=== PATIENT | male | born 1970 | race American Indian/Alaskan Native ===

== ENCOUNTER 2020-10-25 22:08 | Emergency (ER) | payer BC, OTHER ==
--- NOTE | 2020-10-26 06:36 | Emergency Department Report ---
ED Abdominal Pain HPI - General Chief Complaint: Nausea/Vomiting/Diarrhea Stated Complaint: ABD PAIN/NAUSEA PUI?: Yes Time Seen by Provider: 10/26/20 06:28 Source: patient Mode of arrival: Ambulatory Limitations: No Limitations - History of Present Illness Initial Comments: Chief complaint: "I am stressed. I never felt like this before." HPI: This is a 50-year-old male history of hypertension who presents with abdominal bloating for the past day. He felt full to the point of nausea. He denies discrete pain or diarrhea. He was concerned about the deltoid area. He received 2 doses of Pfizer vaccine in June and July. He denies fever, cough, shortness of breath. He denies loss of taste or smell. He has intact appetite. He admits to being stressed out. The father of his daughter recently. He is the same age as this gentleman. He also buried his aunt 2 weeks ago. He recently changed jobs. He left [employer]. He now has [employer]. He does not have a PCP. Consequently he has ran out of his blood pressure medicines because he has not yet found a new PCP. Most recently he discontinued labetalol and now is taking amlodipine. However he has been without his medication for quite some time. Lisinopril caused angioedema. MD Complaint: abdominal pain -: Gradual, days(s) (1 day) Location: diffuse Radiation: none Migration to: no migration Severity: mild Severity scale (0 -10): 0 Quality: dull Consistency: now resolved Improves With: nothing Worsens With: nothing Associated Symptoms: nausea - Related Data Previous Rx's Medication Instructions Recorded Last Taken Type Diphenoxylate/Atropine [Lomotil] 1 tab PO Q4H PRN #10 tablet 07/15/13 Unknown Rx Hyoscyamine Subl [Levsin Sl] 0.125 mg SL Q4HR PRN #10 tablet 07/15/13 Unknown Rx Ondansetron [Zofran Odt] 4 mg PO Q4-6H PRN #14 tab.rapdis 07/15/13 Unknown Rx amLODIPine 10 mg PO DAILY 90 Days #90 tab 10/26/20 Unknown Rx Allergies Allergy/AdvReac Type Severity Reaction Status Date / Time No Known Allergies Allergy Unverified 07/14/13 20:12 ED Review of Systems ROS: Stated complaint: ABD PAIN/NAUSEA Other details as noted in HPI Comment: All other systems reviewed and negative Constitutional: denies: chills, fever, malaise Respiratory: denies: cough, shortness of breath Cardiovascular: denies: chest pain Gastrointestinal: abdominal pain, nausea Psychiatric: denies: homicidal thoughts, suicidal thoughts ED Past Medical Hx - Past Medical History Previous Medical History?: Yes Hx Hypertension: Yes (noncompliant with meds) - Surgical History Past Surgical History?: No - Family History Family history: hypertension - Social History Smoking Status: Never Smoker Substance Use Type: None - Medications Home Medications: Home Medications Medication Instructions Recorded Confirmed Last Taken Type Diphenoxylate/Atropine [Lomotil] 1 tab PO Q4H PRN #10 tablet 07/15/13 Unknown Rx Hyoscyamine Subl [Levsin Sl] 0.125 mg SL Q4HR PRN #10 tablet 07/15/13 Unknown Rx Ondansetron [Zofran Odt] 4 mg PO Q4-6H PRN #14 tab.rapdis 07/15/13 Unknown Rx amLODIPine 10 mg PO DAILY 90 Days #90 tab 10/26/20 Unknown Rx ED Physical Exam - General Limitations: No Limitations General appearance: alert, in no apparent distress, other (Pleasant, comfortable, well-appearing nontoxic-appearing) - Head Head exam: Present: atraumatic, normocephalic - Eye Eye exam: Present: normal appearance - ENT ENT exam: Present: mucous membranes moist - Neck Neck exam: Present: normal inspection, full ROM - Respiratory Respiratory exam: Present: normal lung sounds bilaterally. Absent: respiratory distress, wheezes, rales, rhonchi - Cardiovascular Cardiovascular Exam: Present: regular rate, normal rhythm, normal heart sounds. Absent: systolic murmur, diastolic murmur, rubs, gallop - GI/Abdominal GI/Abdominal exam: Present: soft, normal bowel sounds. Absent: distended, tenderness, guarding, rebound - Rectal Rectal exam: Present: deferred - Extremities Exam Extremities exam: Present: normal inspection - Neurological Exam Neurological exam: Present: alert, oriented X3 - Psychiatric Psychiatric exam: Present: normal affect, normal mood - Skin Skin exam: Present: warm, dry, intact, normal color. Absent: rash ED Course Vital Signs 10/26/20 01:40 Temperature 98.2 F Pulse Rate 104 H Respiratory 16 Rate Blood Pressure 177/100 [Left] O2 Sat by Pulse 100 Oximetry ED Medical Decision Making - Medical Decision Making 1. Irritable bowel syndrome aggravated by social stressors, recommended supportive care given reassurance. Patient was provided education on COVID-19. Reassured Mr. Jean Baptiste that he is protected from the delta variant of COVID-19 with Pfizer vaccine. 2. Hypertensive urgency due to medication noncompliance, patient given extensive education. I informed him of the long-term complications of untreated hypertension. I have prescribed amlodipine 90-day prescription. 3. Social stressors with 2 deaths in the family within 2 weeks. I recommended walking outside daily. I recommended taking time off work. I recommended vacation with his . Critical care attestation.: If time is entered above; I have spent that time in minutes in the direct care of this critically ill patient, excluding procedure time. ED Disposition Clinical Impression: Irritable bowel syndrome, Hypertensive urgency, Stress at home Disposition: DC-01 TO HOME OR SELFCARE Is pt being admited?: No Does the pt Need Aspirin: No Condition: Stable Instructions: Hypertension, Adult, [id number], Diet for Irritable Bowel Syndrome Prescriptions: amLODIPine 10 mg PO DAILY 90 Days #90 tab Referrals: ANTONI KELLY MD [Staff Physician] - 3-5 Days Forms: Work/School Release Form(ED)
[2020-10-26 06:53] VITALS: BP 157/113
== END 2020-10-26 06:45 | disposition home or self-care (01) ==
LOC: ED 22:08
DX: K58.9 Irritable bowel syndrome, unspecified (principal); I16.0 Hypertensive urgency; F43.9 Reaction to severe stress, unspecified
CPT/HCPCS: 99282

== ENCOUNTER 2021-01-21 04:56 | Emergency (ER) | payer BC ==
[2021-01-21] MEDS ORDERED: ONDANSETRON 4 MG ODT TAB PO ONE (07:26)
[2021-01-21 08:12] LABS: Basophils % (Auto) 0.5 % (0.0-1.8); Eosinophils % (Auto) 0.2 % (0.0-4.3); Lymphocytes # (Auto) 0.4 K/mm3 (1.2-5.4); Lymphocytes % (Auto) 7.1 % (13.4-35.0); Mean Corpuscular HGB Conc 31 % (32-34); Mean Corpuscular Volume 73 fl (84-94); Monocytes # (Auto) 0.4 K/mm3 (0.0-0.8); Monocytes % (Auto) 6.9 % (0.0-7.3); Platelet Count 241 K/mm3 (140-440); Red Blood Count 7.07 M/mm3 (3.65-5.03); Red Cell Distribution Width 16.8 % (13.2-15.2)
[2021-01-21 08:14] LABS: Hematocrit 51.8 % (35.5-45.6); Hemoglobin 16.2 gm/dl (11.8-15.2)
[2021-01-21 08:29] LABS: Bilirubin,Urine NEG (Negative); Blood,Urine NEG (Negative); Color,Urine Yellow (Yellow); Protein,Urine <15 mg/dL mg/dL (Negative); RBC,Urine < 1.0 /HPF (0.0-6.0); Urobilinogen,Urine < 2.0 mg/dL (<2.0)
[2021-01-21 08:32] LABS: Alanine Aminotransferase 24 units/L (7-56); Albumin 4.8 g/dL (3.9-5); BUN/Creatinine Ratio 8; Blood Urea Nitrogen 9 mg/dL (9-20); Calcium 10.1 mg/dL (8.4-10.2); Hemolysis Index 6
--- NOTE | 2021-01-21 08:41 | Emergency Department Report ---
ED N/V/D HPI - General Chief complaint: Nausea/Vomiting/Diarrhea Stated complaint: HIGH BP/NAUSEA Time Seen by Provider: 01/21/21 07:17 Source: patient Mode of arrival: Ambulatory Limitations: No Limitations - History of Present Illness Initial comments: This is a 50-year-old male nontoxic, well nourished in appearance, no acute signs of distress presents to the ED with c/o of nausea 1 day. Patient stated that last night he went out and had few drinks and ate a taco and this morning started to have some nausea. Patient denies any vomiting. Patient also stated is concerned about his blood pressure and stated that his normal blood pressure is high 170s over low 100s. Patient stated he is concerned that it may be high today. Patient denies any other symptoms or complaints. Patient denies any abdominal pain, chest pain, short of breath, fever, chills, headache, stiff neck, numbness or tingling. Patient denies any diarrhea or constipation. Denies any blood in stool. Patient denies any recent travels. Patient denies any drug allergies. Patient is compliant with his blood pressure medication. MD complaint: nausea -: days(s) Associated Abdominal Pain: No Radiation: none Pain Scale: 0 Worsens with: none Associated Symptoms: nausea/vomiting (nausea only). denies: myalgias, chest pain, cough, diaphoresis, fever/chills, headaches, loss of appetite, malaise, rash, dysuria, shortness of breath, syncope, weakness - Related Data Previous Rx's Medication Instructions Recorded Last Taken Type Diphenoxylate/Atropine [Lomotil] 1 tab PO Q4H PRN #10 tablet 07/15/13 Unknown Rx Hyoscyamine Subl [Levsin Sl] 0.125 mg SL Q4HR PRN #10 tablet 07/15/13 Unknown Rx Ondansetron [Zofran Odt] 4 mg PO Q4-6H PRN #14 tab.rapdis 07/15/13 Unknown Rx amLODIPine 10 mg PO DAILY 90 Days #90 tab 10/26/20 Unknown Rx Ondansetron [Zofran Odt] 4 mg PO Q8HR PRN #12 tab.rapdis 01/21/21 Unknown Rx Allergies Allergy/AdvReac Type Severity Reaction Status Date / Time No Known Allergies Allergy Unverified 07/14/13 20:12 ED Review of Systems ROS: Stated complaint: HIGH BP/NAUSEA Other details as noted in HPI Comment: All other systems reviewed and negative Constitutional: denies: chills, fever Eyes: denies: eye pain, eye discharge, vision change ENT: denies: ear pain, throat pain Respiratory: denies: cough, shortness of breath, wheezing Cardiovascular: denies: chest pain, palpitations Endocrine: no symptoms reported Gastrointestinal: nausea. denies: abdominal pain, vomiting, diarrhea, constipation, hematemesis, melena, hematochezia Genitourinary: denies: urgency, dysuria Musculoskeletal: denies: back pain, joint swelling, arthralgia Skin: denies: rash, lesions Neurological: denies: headache, weakness, paresthesias Psychiatric: denies: anxiety, depression Hematological/Lymphatic: denies: easy bleeding, easy bruising ED Past Medical Hx - Past Medical History Previous Medical History?: No Hx Hypertension: Yes (noncompliant with meds) - Surgical History Past Surgical History?: No - Social History Smoking Status: Never Smoker Substance Use Type: None - Medications Home Medications: Home Medications Medication Instructions Recorded Confirmed Last Taken Type Diphenoxylate/Atropine [Lomotil] 1 tab PO Q4H PRN #10 tablet 07/15/13 Unknown Rx Hyoscyamine Subl [Levsin Sl] 0.125 mg SL Q4HR PRN #10 tablet 07/15/13 Unknown Rx Ondansetron [Zofran Odt] 4 mg PO Q4-6H PRN #14 tab.rapdis 07/15/13 Unknown Rx amLODIPine 10 mg PO DAILY 90 Days #90 tab 10/26/20 Unknown Rx Ondansetron [Zofran Odt] 4 mg PO Q8HR PRN #12 tab.rapdis 01/21/21 Unknown Rx ED Physical Exam - General Limitations: No Limitations General appearance: alert, in no apparent distress - Head Head exam: Present: atraumatic, normocephalic - Eye Eye exam: Present: normal appearance - ENT ENT exam: Present: normal exam, normal orophraynx - Neck Neck exam: Present: normal inspection, full ROM. Absent: lymphadenopathy - Respiratory Respiratory exam: Present: normal lung sounds bilaterally. Absent: respiratory distress, wheezes, rales, rhonchi, stridor, chest wall tenderness, accessory muscle use, decreased breath sounds, prolonged expiratory - Cardiovascular Cardiovascular Exam: Present: regular rate, normal rhythm, normal heart sounds. Absent: bradycardia, tachycardia, irregular rhythm, systolic murmur, diastolic murmur, rubs, gallop - GI/Abdominal GI/Abdominal exam: Present: soft, normal bowel sounds. Absent: distended, tenderness, guarding, rebound, rigid, diminished bowel sounds - Extremities Exam Extremities exam: Present: normal inspection, full ROM - Back Exam Back exam: Present: normal inspection, full ROM. Absent: tenderness, CVA tenderness (R), CVA tenderness (L), muscle spasm, paraspinal tenderness, vertebral tenderness, rash noted - Neurological Exam Neurological exam: Present: alert, oriented X3, normal gait - Psychiatric Psychiatric exam: Present: normal affect, normal mood - Skin Skin exam: Present: warm, dry, intact, normal color. Absent: rash ED Course Vital Signs 01/21/21 05:19 Temperature 99.0 F Pulse Rate 97 H Respiratory 15 Rate Blood Pressure 164/106 [Left] O2 Sat by Pulse 98 Oximetry - Reevaluation(s) Reevaluation #1: 01/21/21 08:41 Patient is speaking in full sentences with no signs of distress noted. ED Medical Decision Making - Lab Data Result diagrams: 01/21/21 07:46 01/21/21 07:46 Lab Results 01/21/21 01/21/21 01/21/21 Range/Units 07:46 07:46 Unknown WBC 6.1 (4.5-11.0) K/mm3 RBC 7.07 H (3.65-5.03) M/mm3 Hgb 16.2 H (11.8-15.2) gm/dl Hct 51.8 H (35.5-45.6) % MCV 73 L (84-94) fl MCH 23 L (28-32) pg MCHC 31 L (32-34) % RDW 16.8 H (13.2-15.2) % Plt Count 241 (140-440) K/mm3 Lymph % (Auto) 7.1 L (13.4-35.0) % [place] % (Auto) 6.9 (0.0-7.3) % Eos % (Auto) 0.2 (0.0-4.3) % Baso % (Auto) 0.5 (0.0-1.8) % Lymph # (Auto) 0.4 L (1.2-5.4) K/mm3 [place] # (Auto) 0.4 (0.0-0.8) K/mm3 Eos # (Auto) 0.0 (0.0-0.4) K/mm3 Baso # (Auto) 0.0 (0.0-0.1) K/mm3 Seg Neutrophils % 85.3 H (40.0-70.0) % Seg Neutrophils # 5.2 (1.8-7.7) K/mm3 Sodium 137 (137-145) mmol/L Potassium 4.9 (3.6-5.0) mmol/L Chloride 99.3 (98-107) mmol/L Carbon Dioxide 26 (22-30) mmol/L Anion Gap 17 mmol/L BUN 9 (9-20) mg/dL Creatinine 1.1 (0.8-1.3) mg/dL Estimated GFR > 60 ml/min BUN/Creatinine Ratio 8 % Glucose 109 H (75-100) mg/dL Calcium 10.1 (8.4-10.2) mg/dL Total Bilirubin 0.40 (0.1-1.2) mg/dL AST 19 (5-40) units/L ALT 24 (7-56) units/L Alkaline Phosphatase 67 (35-129) units/L Total Protein 8.5 H (6.3-8.2) g/dL Albumin 4.8 (3.9-5) g/dL Albumin/Globulin Ratio 1.3 % Urine Color Yellow (Yellow) Urine Turbidity Clear (Clear) Urine pH 7.0 (5.0-7.0) Ur Specific [place] 1.010 (1.003-1.030) Urine Protein <15 mg/dl (Negative) mg/dL Urine Glucose (UA) Neg (Negative) mg/dL Urine Ketones Neg (Negative) mg/dL Urine Blood Neg (Negative) Urine Nitrite Neg (Negative) Urine Bilirubin Neg (Negative) Urine Urobilinogen < 2.0 (<2.0) mg/dL Ur Leukocyte Esterase Neg (Negative) Urine WBC (Auto) 1.0 (0.0-6.0) /HPF Urine RBC (Auto) < 1.0 (0.0-6.0) /HPF U Epithel Cells (Auto) < 1.0 (0-13.0) /HPF - Medical Decision Making This is a 50-year-old male that presents with nausea. Patient is stable and was examined by me. There is no abdominal tenderness. Negative signs of symptoms of appendicitis, cholecystitis or acute abdomen. Labs obtained. UA obtained. Vital signs are stable prior to discharge. Patient stated his blood pressure during todays visit is normal for patient. Patient received Zofran in the ED which patient stated symptoms has resovled and subsided. A by mouth challenge has been obtained and patient tolerated well with no nausea vomiting. Patient was also instructed to Follow-up with a primary care doctor in 3-5 days or if symptoms worsen and continue return to emergency room as soon as possible. At time of discharge, the patient does not seem toxic or ill in appearance. No acute signs of distress noted. Patient agrees to discharge treatment plan of care. No further questions noted by the patient. Critical care attestation.: If time is entered above; I have spent that time in minutes in the direct care of this critically ill patient, excluding procedure time. ED Disposition Clinical Impression: Nausea Disposition: 01 HOME / SELF CARE / HOMELESS Is pt being admited?: No Does the pt Need Aspirin: No Condition: Stable Instructions: Nausea, Adult, [id number] Additional Instructions: Follow-up with a primary care doctor in 3-5 days or if symptoms worsen and continue return to emergency room as soon as possible. Prescriptions: Ondansetron [Zofran Odt] 4 mg PO Q8HR PRN #12 tab.rapdis PRN Reason: Nausea Referrals: PRIMARY MD TINA [Primary Care Provider] - 3-5 Days ANTONI KELLY MD [Staff Physician] - 3-5 Days Forms: Work/School Release Form(ED) Time of Disposition: 08:43
[2021-01-21 09:41] VITALS: BP 136/100
== END 2021-01-21 09:42 | disposition home or self-care (01) ==
LOC: ED 04:56
DX: R11.0 Nausea (principal); I10 Essential (primary) hypertension
CPT/HCPCS: 36415; 80053; 81001; 85025; 99283; J3490; Q0162

== ENCOUNTER 2021-01-21 23:44 | Emergency (ER) | payer BC ==
[2021-01-22] MEDS ORDERED: FAMOTIDINE 20 MG TAB PO ONE (02:43)
[2021-01-22] MEDS ORDERED: LIDOCAINE VISCOUS 2% 15 ML ORAL LIQD PO ONE (02:43)
[2021-01-22] MEDS ORDERED: ALUM-MAG HYDROXIDE-SIMETHICONE 200-200-20MG/5ML ORAL LIQD 30 ML PO ONE (02:43)
[2021-01-22] MEDS ORDERED: ONDANSETRON 4 MG ODT TAB PO ONE (02:43)
--- NOTE | 2021-01-22 04:18 | Emergency Department Report ---
ED N/V/D HPI - General Chief complaint: Nausea/Vomiting/Diarrhea Stated complaint: NAUSEA PUI?: No Source: patient Mode of arrival: Ambulatory Limitations: No Limitations - History of Present Illness Initial comments: Patient is a 50-year-old -Turkmen male with history of hypertension who presents to the ED with complaint of acute onset persistent intermittent nausea and vomiting and mild epigastric pain for the last 3 days after eating at a restaurant. Patient states that he was initially evaluated in this ED about 24 hours ago and that all lab test results were unremarkable and was discharged home on antiemetics. Patient states that he has been taking antiemetics but the nausea and vomiting has been persistent and intermittent. Patient denies dizziness, syncope, fever, chills, cough, sore throat, diarrhea, dysuria, urinary frequency and urgency, hematemesis, hematochezia, change in vision, chest pain or shortness of breath or palpitations. MD complaint: nausea, vomiting, abdominal pain (Epigastric pain) -: Sudden, days(s) (3) Description of Vomiting: food contents, bilious Associated Abdominal Pain: Yes (Mild epigastric pain) Location: epigastric Radiation: none Severity: moderate Pain Scale: 5 Quality: aching, dull Consistency: intermittent Improves with: none Worsens with: eating, vomiting Context: possible food poisoning Associated Symptoms: denies other symptoms, loss of appetite, malaise, nausea/vomiting. denies: myalgias, chest pain, cough, diaphoresis, fever/chills, headaches, dysuria, shortness of breath, syncope, weakness - Related Data Previous Rx's Medication Instructions Recorded Last Taken Type Diphenoxylate/Atropine [Lomotil] 1 tab PO Q4H PRN #10 tablet 07/15/13 Unknown Rx Hyoscyamine Subl [Levsin Sl] 0.125 mg SL Q4HR PRN #10 tablet 07/15/13 Unknown Rx Ondansetron [Zofran Odt] 4 mg PO Q4-6H PRN #14 tab.rapdis 07/15/13 Unknown Rx amLODIPine 10 mg PO DAILY 90 Days #90 tab 10/26/20 Unknown Rx Ondansetron [Zofran Odt] 4 mg PO Q8HR PRN #12 tab.rapdis 01/21/21 Unknown Rx Dicyclomine [Bentyl] 20 mg PO Q6H PRN #24 tablet 01/22/21 Unknown Rx Famotidine [Pepcid] 20 mg PO BID #60 tablet 01/22/21 Unknown Rx Omeprazole 40 mg PO DAILY #30 capsule. 01/22/21 Unknown Rx Allergies Allergy/AdvReac Type Severity Reaction Status Date / Time No Known Allergies Allergy Unverified 07/14/13 20:12 ED Review of Systems ROS: Stated complaint: NAUSEA Other details as noted in HPI Constitutional: denies: chills, fever Eyes: denies: eye pain, eye discharge, vision change ENT: denies: ear pain, throat pain Respiratory: denies: cough, shortness of breath, wheezing Cardiovascular: denies: chest pain, palpitations Endocrine: no symptoms reported Gastrointestinal: abdominal pain (Mild epigastric pain), nausea, vomiting. denies: diarrhea Genitourinary: denies: urgency, dysuria Musculoskeletal: denies: back pain, joint swelling, arthralgia Skin: denies: rash, lesions Neurological: denies: headache, weakness, paresthesias Psychiatric: denies: anxiety, depression Hematological/Lymphatic: denies: easy bleeding, easy bruising ED Past Medical Hx - Past Medical History Previous Medical History?: No Hx Hypertension: Yes (noncompliant with meds) - Surgical History Past Surgical History?: No - Social History Smoking Status: Never Smoker Substance Use Type: None - Medications Home Medications: Home Medications Medication Instructions Recorded Confirmed Last Taken Type Diphenoxylate/Atropine [Lomotil] 1 tab PO Q4H PRN #10 tablet 07/15/13 Unknown Rx Hyoscyamine Subl [Levsin Sl] 0.125 mg SL Q4HR PRN #10 tablet 07/15/13 Unknown Rx Ondansetron [Zofran Odt] 4 mg PO Q4-6H PRN #14 tab.rapdis 07/15/13 Unknown Rx amLODIPine 10 mg PO DAILY 90 Days #90 tab 10/26/20 Unknown Rx Ondansetron [Zofran Odt] 4 mg PO Q8HR PRN #12 tab.rapdis 01/21/21 Unknown Rx Dicyclomine [Bentyl] 20 mg PO Q6H PRN #24 tablet 01/22/21 Unknown Rx Famotidine [Pepcid] 20 mg PO BID #60 tablet 01/22/21 Unknown Rx Omeprazole 40 mg PO DAILY #30 capsule. 01/22/21 Unknown Rx ED Physical Exam - General Limitations: No Limitations General appearance: alert, in no apparent distress - Head Head exam: Present: atraumatic, normocephalic, normal inspection - Eye Eye exam: Present: normal appearance, PERRL, EOMI - ENT ENT exam: Present: normal exam, normal orophraynx, mucous membranes moist, TM's normal bilaterally, normal external ear exam - Neck Neck exam: Present: normal inspection, full ROM - Respiratory Respiratory exam: Present: normal lung sounds bilaterally. Absent: respiratory distress, wheezes, rales, chest wall tenderness, accessory muscle use, decreased breath sounds - Cardiovascular Cardiovascular Exam: Present: regular rate, normal rhythm, normal heart sounds. Absent: systolic murmur, diastolic murmur, rubs, gallop - GI/Abdominal GI/Abdominal exam: Present: soft, tenderness (Mild epigastric tenderness), normal bowel sounds. Absent: guarding, rebound, hyperactive bowel sounds, hypoactive bowel sounds, organomegaly - Extremities Exam Extremities exam: Present: normal inspection, full ROM, normal capillary refill - Back Exam Back exam: Present: normal inspection, full ROM. Absent: tenderness, CVA tenderness (R), CVA tenderness (L), muscle spasm, paraspinal tenderness, vertebral tenderness - Neurological Exam Neurological exam: Present: alert, oriented X3, CN II-XII intact, normal gait, reflexes normal - Psychiatric Psychiatric exam: Present: normal affect, normal mood - Skin Skin exam: Present: warm, dry, intact, normal color. Absent: rash ED Course Vital Signs 01/22/21 00:44 Temperature 98.2 F Pulse Rate 93 H Respiratory 20 Rate Blood Pressure 146/99 O2 Sat by Pulse 96 Oximetry ED Medical Decision Making - Medical Decision Making This is a 50-year-old -Turkmen male with history of hypertension who presents to the ED with complaint of acute onset persistent intermittent nausea and vomiting and mild epigastric pain for the last 3 days after eating at a restaurant. Patient states that he was initially evaluated in this ED about 24 hours ago and that all lab test results were unremarkable and was discharged home on antiemetics. Patient states that he has been taking antiemetics but the nausea and vomiting has been persistent and intermittent. In the ED, patient is alert and oriented x3 and is not in any distress. Patient is hemodynamically stable. Patient was extensively worked up less than 24 hours ago in this ED with all lab test results being unremarkable. Patient symptoms appear to have started after eating at a restaurant and therefore suspected food poisoning in addition to other differential diagnosis. Patient was therefore treated in the ED with antacids and pain medication and also given antiemetics in the ED and observed. On reevaluation, patient was able to drink water with no nausea or vomiting, and the epigastric pain also resolved with medications. Patient was therefore discharged home on additional prescriptions of antacids and antispasmodics and advised to maintain a clear liquid diet for 12 to 24 hours, while taking medications at home. Patient was advised to follow-up with his primary care physician in 5 to 7 days for reevaluation or return to the ED immediately if symptoms get worse. - Differential Diagnosis Gastroenteritis; dehydration; GERD; gastritis; Critical care attestation.: If time is entered above; I have spent that time in minutes in the direct care of this critically ill patient, excluding procedure time. ED Disposition Clinical Impression: Nausea and vomiting in adult patient, Viral gastroenteritis Abdominal pain Qualifiers: Abdominal location: epigastric Qualified Code(s): R10.13 - Epigastric pain GERD (gastroesophageal reflux disease) Qualifiers: Esophagitis presence: esophagitis presence not specified Qualified Code(s): K21.9 - Gastro-esophageal reflux disease without esophagitis Disposition: 01 HOME / SELF CARE / HOMELESS Is pt being admited?: No Does the pt Need Aspirin: No Condition: Stable Instructions: Viral Gastroenteritis, Adult, [id number], Abdominal Pain, Adult, [id number], Nausea and Vomiting, Adult, [id number], Food Choices for Gastroesophageal Reflux Disease, Adult, [id number], Gastroesophageal Reflux Disease, Adult, [id number] Additional Instructions: Maintain a clear liquid diet for 12 to 24 hours, take medication as advised, drink plenty of fluids and follow-up with your primary care physician in 3 to 5 days for reevaluation. Return to the ED immediately if symptoms get worse. Prescriptions: Dicyclomine [Bentyl] 20 mg PO Q6H PRN #24 tablet PRN Reason: Abdominal pain Omeprazole 40 mg PO DAILY #30 capsule. Famotidine [Pepcid] 20 mg PO BID #60 tablet Referrals: [facility] [Provider Group] - 3-5 Days Forms: Work/School Release Form(ED) Time of Disposition: 04:20 Print Language: ESTONIAN
[2021-01-22 04:43] VITALS: BP 132/98
== END 2021-01-22 04:10 | disposition home or self-care (01) ==
LOC: ED 23:44
DX: A08.4 Viral intestinal infection, unspecified (principal); R10.13 Epigastric pain; K21.9 Gastro-esophageal reflux disease without esophagitis; I10 Essential (primary) hypertension
CPT/HCPCS: 99282; Q0162

== ENCOUNTER 2021-09-28 10:10 | Emergency (ER) | payer BC ==
[2021-09-28 10:23] VITALS: BP 157/106
--- NOTE | 2021-09-28 10:38 | Emergency Department Report ---
ED General Adult HPI - General Chief complaint: Medical Clearance Stated complaint: HIGH BP Time Seen by Provider: 09/28/21 10:32 Source: patient Mode of arrival: Ambulatory Limitations: No Limitations - History of Present Illness Initial comments: 51-year-old male with past medical history of hypertension reports to the ER for medication refill. Patient is asymptomatic with his blood pressure patient reports ordering his blood pressure on for mail order and was informed that he will not receive it until Wednesday afternoon. Patient states he has been taking his blood pressure readings at home his last reading was 148/104 reports that his bowel movement has been increasing slightly. Patient reports taking blood pressure pills about 2 days ago. No chest pain no headache no dizziness no weakness reported. - Related Data Previous Rx's Medication Instructions Recorded Last Taken Type Diphenoxylate/Atropine [Lomotil] 1 tab PO Q4H PRN #10 tablet 07/15/13 Unknown Rx Hyoscyamine Subl [Levsin Sl] 0.125 mg SL Q4HR PRN #10 tablet 07/15/13 Unknown Rx Ondansetron [Zofran Odt] 4 mg PO Q4-6H PRN #14 tab.rapdis 07/15/13 Unknown Rx amLODIPine 10 mg PO DAILY 90 Days #90 tab 10/26/20 Unknown Rx Ondansetron [Zofran Odt] 4 mg PO Q8HR PRN #12 tab.rapdis 01/21/21 Unknown Rx Dicyclomine [Bentyl] 20 mg PO Q6H PRN #24 tablet 01/22/21 Unknown Rx Famotidine [Pepcid] 20 mg PO BID #60 tablet 01/22/21 Unknown Rx Omeprazole 40 mg PO DAILY #30 capsule. 01/22/21 Unknown Rx amLODIPine 5 mg PO DAILY 15 Days #15 tab 09/28/21 Unknown Rx Allergies Allergy/AdvReac Type Severity Reaction Status Date / Time No Known Allergies Allergy Unverified 07/14/13 20:12 ED Review of Systems ROS: Stated complaint: HIGH BP Other details as noted in HPI Constitutional: denies: chills, fever Eyes: denies: eye pain, eye discharge, vision change ENT: denies: ear pain, throat pain Respiratory: denies: cough, shortness of breath, wheezing Cardiovascular: denies: chest pain, palpitations Endocrine: no symptoms reported Gastrointestinal: denies: abdominal pain, nausea, diarrhea Genitourinary: denies: urgency, dysuria Musculoskeletal: denies: back pain, joint swelling, arthralgia Skin: denies: rash, lesions Neurological: denies: headache, weakness, paresthesias Psychiatric: denies: anxiety, depression Hematological/Lymphatic: denies: easy bleeding, easy bruising ED Past Medical Hx - Past Medical History Previous Medical History?: Yes Hx Hypertension: Yes - Social History Smoking Status: Never Smoker - Medications Home Medications: Home Medications Medication Instructions Recorded Confirmed Last Taken Type Diphenoxylate/Atropine [Lomotil] 1 tab PO Q4H PRN #10 tablet 07/15/13 Unknown Rx Hyoscyamine Subl [Levsin Sl] 0.125 mg SL Q4HR PRN #10 tablet 07/15/13 Unknown Rx Ondansetron [Zofran Odt] 4 mg PO Q4-6H PRN #14 tab.rapdis 07/15/13 Unknown Rx amLODIPine 10 mg PO DAILY 90 Days #90 tab 10/26/20 Unknown Rx Ondansetron [Zofran Odt] 4 mg PO Q8HR PRN #12 tab.rapdis 01/21/21 Unknown Rx Dicyclomine [Bentyl] 20 mg PO Q6H PRN #24 tablet 01/22/21 Unknown Rx Famotidine [Pepcid] 20 mg PO BID #60 tablet 01/22/21 Unknown Rx Omeprazole 40 mg PO DAILY #30 capsule. 01/22/21 Unknown Rx amLODIPine 5 mg PO DAILY 15 Days #15 tab 09/28/21 Unknown Rx ED Physical Exam - General Limitations: No Limitations General appearance: alert, in no apparent distress - Head Head exam: Present: atraumatic, normocephalic - Eye Eye exam: Present: normal appearance - ENT ENT exam: Present: mucous membranes moist - Neck Neck exam: Present: normal inspection - Respiratory Respiratory exam: Present: normal lung sounds bilaterally. Absent: respiratory distress - Cardiovascular Cardiovascular Exam: Present: regular rate, normal rhythm. Absent: systolic murmur, diastolic murmur, rubs, gallop - GI/Abdominal GI/Abdominal exam: Present: soft, normal bowel sounds - Rectal Rectal exam: Present: deferred - Extremities Exam Extremities exam: Present: normal inspection - Back Exam Back exam: Present: normal inspection - Neurological Exam Neurological exam: Present: alert, oriented X3 - Psychiatric Psychiatric exam: Present: normal affect, normal mood - Skin Skin exam: Present: warm, dry, intact, normal color. Absent: rash ED Course Vital Signs 09/28/21 10:20 Temperature 98.9 F Pulse Rate 88 Respiratory 18 Rate Blood Pressure 157/106 O2 Sat by Pulse 97 Oximetry ED Medical Decision Making - Medical Decision Making 51-year-old male with past medical history of hypertension reports to the ER for medication refill for amlodipine 5 daily. Patient is asymptomatic with his blood pressure patient reports ordering his blood pressure on for mail order and was informed that he will not receive it until Wednesday afternoon. Patient states he has been taking his blood pressure readings at home his last reading was 148/104 reports that his bowel movement has been increasing slightly. Patient reports taking blood pressure pills about 2 days ago. No chest pain no headache no dizziness no weakness reported. No acute findings on physical exam. Patient is currently taking amlodipine 5 mg once a day. Will refill medication for 15-day supply. Patient agrees with plan of care and verbalized understanding. If patient is to experience any symptoms of increasing blood pressure he is informed to report back to the ER for further evaluation. Critical care attestation.: If time is entered above; I have spent that time in minutes in the direct care of this critically ill patient, excluding procedure time. ED Disposition Clinical Impression: Medication refill HTN (hypertension) Qualifiers: Hypertension type: primary hypertension Qualified Code(s): I10 - Essential (primary) hypertension Disposition: 01 HOME / SELF CARE / HOMELESS Is pt being admited?: No Condition: Stable Instructions: Hypertension (ED), Hypertension, Adult, [id number], Managing Your Hypertension Prescriptions: amLODIPine 5 mg PO DAILY 15 Days #15 tab Time of Disposition: 10:39
--- NOTE | 2021-09-28 19:59 | Electrocardiograph Report ---
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
== END 2021-09-28 19:41 | disposition home or self-care (01) ==
LOC: ED 10:10
DX: I10 Essential (primary) hypertension (principal); Z76.0 Encounter for issue of repeat prescription
CPT/HCPCS: 93005; 99282